=== PATIENT | female | born 2000 | race Caucasian/White ===

== ENCOUNTER 2018-06-05 20:41 | Emergency (ER) | payer BC ==
[2018-06-05 20:59] VITALS: BP 114/75
--- NOTE | 2018-06-05 21:27 | UC ---
Ear Complaint HPI - HPI Summary HPI Summary: Pt c/o gradual onset of right ear pain X 2-3 days. - History of Current Complaint Chief Complaint: UCEar Stated Complaint: RT EAR COMPLAINT Time Seen by Provider: 06/05/18 21:14 Hx Obtained From: Patient Hx Last Menstrual Period: 06/02/18 ?: No Onset/Duration: Gradual Onset, Lasting Days, Still Present Severity Initially: Mild Severity Currently: Moderate Pain Intensity: 6 Associated Signs/Symptoms: Positive: Hearing Loss, URI Symptoms - Allergies/Home Medications Allergies/Adverse Reactions: Allergies Allergy/AdvReac Type Severity Reaction Status Date / Time seasonal Allergy Congestion Uncoded 06/05/18 20:55 Home Medications: Home Medications PARoxetine HCL TAB* [Paxil TAB*] 1 tab DAILY 06/05/18 [History Confirmed ] PMH/Surg Hx/FS Hx/Imm Hx Previously Healthy: Yes - Surgical History Surgical History: Yes Surgery Procedure, Year, and Place: Pancreas Drained, 2008, [place]. Endoscopy Aug 2017 - Family History Known Family History: Positive: Cardiac Disease - Social History Occupation: Student Lives: With Family Alcohol Use: None Substance Use Type: None Smoking Status (MU): Never Smoked Tobacco Have You Smoked in the Last Year: No - Immunization History Vaccination Up to Date: Yes Review of Systems All Other Systems Reviewed And Are Negative: Yes Constitutional: Positive: Negative Skin: Positive: Negative Eyes: Positive: Negative ENT: Positive: Ear Ache Respiratory: Positive: Negative Cardiovascular: Positive: Negative Gastrointestinal: Positive: Negative Genitourinary: Positive: Negative Motor: Positive: Negative Neurovascular: Positive: Negative Musculoskeletal: Positive: Negative Neurological: Positive: Negative Psychological: Positive: Negative Is Patient Immunocompromised?: No Physical Exam Triage Information Reviewed: Yes Appearance: Well-Appearing Vital Signs: Initial Vital Signs Temp 97.9 F 06/05/18 20:56 Pulse 89 06/05/18 20:56 Resp 18 06/05/18 20:56 BP 114/75 06/05/18 20:56 Pulse Ox 99 06/05/18 20:56 Vital Signs Reviewed: Yes Eye Exam: Normal ENT: Positive: Other - right ear canal cerumen. Dental Exam: Normal Neck exam: Normal Respiratory Exam: Normal Cardiovascular Exam: Normal Musculoskeletal Exam: Normal Neurological Exam: Normal Psychological Exam: Normal Skin Exam: Normal Ear Complaint Course/Dx - Differential Dx/Diagnosis Differential Diagnosis/HQI/PQRI: Cerumen Impaction, Otitis Externa, Otitis Media , URI Provider Diagnosis: Impacted cerumen, right ear Discharge - Sign-Out/Discharge Documenting (check all that apply): Patient Departure All imaging exams completed and their final reports reviewed: No Studies - Discharge Plan Condition: Stable Disposition: HOME Patient Education Materials: Cerumen Impaction (ED), Earache (ED) Referrals: Regina Waldrop PA [Primary Care Provider] - If Needed - Billing Disposition and Condition Condition: STABLE Disposition: Home
== END 2018-06-05 21:33 | disposition home or self-care (01) ==
LOC: UCCORT 20:41
DX: H61.21 Impacted cerumen, right ear (principal)
CPT/HCPCS: 99212; G0463

== ENCOUNTER 2020-06-08 17:23 | Inpatient (IN) ==
[2020-06-08 18:22] LABS: ABS Eosinophils 0.1 10^3/ul (0-0.6); ABS Lymphocytes 2.6 10^3/ul (1.0-4.8); ABS Monocytes 0.5 10^3/ul (0-0.8); ABS Neutrophils 4.8 10^3/ul (1.5-7.7); Eosinophil % 0.6 %; Hematocrit 39 % (35-47); Hemoglobin 13.3 g/dL (12.0-16.0); Lymphocyte % 32.7 %; Mean Corpuscular HGB Conc 34 g/dL (31-36); Mean Corpuscular Hemoglobin 27 pg (27-31); Mean Corpuscular Volume 79 fL (80-97); Mean Platelet Volume 8.6 fL (7.4-10.4); Platelet Count 316 10^3/uL (150-450); Red Cell Distribution Width 14 % (10-15); White Blood Count 8.1 10^3/uL (3.5-10.8)
[2020-06-08 18:38] LABS: ALT 10 U/L (7-52); AST 15 U/L (13-39); Albumin 4.4 g/dL (3.2-5.2); Albumin/Globulin Ratio 1.3 (1-3); Alkaline Phosphatase 72 U/L (34-104); Anion Gap 9 mmol/L (2-11); BUN/Creatinine Ratio 19.1 (8-20); Blood Urea Nitrogen 13 mg/dL (6-24); CO2 Carbon Dioxide 20 mmol/L (22-32); Calcium 9.5 mg/dL (8.6-10.3); Chloride 109 mmol/L (101-111); EGFR African American 130.9 (>60); EGFR Non-African American 108.2 (>60); Globulin 3.3 g/dL (2-4); Glucose 87 mg/dL (70-100); Potassium 3.5 mmol/L (3.5-5.0); Sodium 138 mmol/L (135-145); Total Protein 7.7 g/dL (6.4-8.9)
[2020-06-08 18:52] LABS: Acetaminophen < 15 mcg/mL; Alcohol, S < 10 mg/dL (<10); Salicylate < 2.50 mg/dL (<30)
[2020-06-08 19:03] LABS: TSH Ultra Thyroid Stim Horm 1.57 mcIU/mL (0.34-5.60)
[2020-06-08 20:35] LABS: Urine Appearance Cloudy; Urine Bilirubin Negative (Negative); Urine Blood 3+ (Negative); Urine Color Yellow; Urine Glucose Negative (Negative); Urine Ketones 1+ (Negative); Urine Nitrite Negative (Negative); Urine Protein 1+(30 mg/dL) (Negative); Urine Specific Gravity 1.027 (1.010-1.030); Urine Urobilinogen Negative (Negative)
[2020-06-08 20:38] LABS: Urine Bacteria 1+ (Absent); Urine Red Blood Cell 3+(>10/hpf) (Absent); Urine Squamous Epithelial Cell Present (Absent); Urine White Blood Cell Trace(0-5/hpf) (Absent)
[2020-06-08 20:47] LABS: Urine Benzodiazepine Screen None Detected (None Detect); Urine Cannabinoids Screen None Detected (None Detect); Urine Opiates Screen None Detected (None Detect)
[2020-06-09] MEDS ORDERED: Al Hydrox/Mg Hydrox/Simet LIQ 30 ML UDC PO PRN (06:34)
[2020-06-09] MEDS: Vitamin THERAPEUTIC TAB PO SCH (13:14)
[2020-06-09] MEDS ORDERED: CMCS:FluvoxaMINE 50 mg TAB (NF) PO SCH (18:00)
[2020-06-10] MEDS: Vitamin THERAPEUTIC TAB PO SCH (07:59)
[2020-06-10 08:36] LABS: HDL Cholesterol 38.4 mg/dL
[2020-06-10] MEDS ORDERED: Influenza VAC *QUAD* 2020-21* 0.5 ML SYRINGE IM ONE (09:00)
[2020-06-10] MEDS ORDERED: CMCS:FluvoxaMINE 50 mg TAB (NF) PO SCH (18:00)
[2020-06-10] MEDS: CMC: FluvoxaMINE 50 mg TAB (NF) PO SCH (18:31)
[2020-06-10] MEDS: CLOMIPRAMINE 25 MG PO SCH (21:07)
[2020-06-11] MEDS: Vitamin THERAPEUTIC TAB PO SCH (09:02)
[2020-06-11] MEDS: CMC: FluvoxaMINE 50 mg TAB (NF) PO SCH (17:44)
[2020-06-11] MEDS: CLOMIPRAMINE 25 MG PO SCH (21:14)
[2020-06-12] MEDS: Vitamin THERAPEUTIC TAB PO SCH (10:56)
[2020-06-12] MEDS: CMC: FluvoxaMINE 50 mg TAB (NF) PO SCH (18:26)
[2020-06-12] MEDS: CLOMIPRAMINE 25 MG PO SCH (20:56)
[2020-06-13] MEDS: Vitamin THERAPEUTIC TAB PO SCH (09:26)
[2020-06-13] MEDS: CMCS: FluvoxaMINE 50 mg TAB (NF) PO SCH (19:12)
[2020-06-13] MEDS: CMCS: ClomiPRAMINE 25 mg TAB (NF) PO SCH (21:50)
[2020-06-14] MEDS: Vitamin THERAPEUTIC TAB PO SCH (09:24)
[2020-06-14 12:28] LABS: Urine Appearance Turbid; Urine Bilirubin Negative (Negative); Urine Blood Negative (Negative); Urine Color Yellow; Urine Glucose Negative (Negative); Urine Ketones Negative (Negative); Urine Nitrite Negative (Negative); Urine Protein Negative (Negative); Urine Urobilinogen Negative (Negative)
[2020-06-14] MEDS: CMCS: FluvoxaMINE 50 mg TAB (NF) PO SCH (17:42)
[2020-06-14] MEDS: CMCS: ClomiPRAMINE 25 mg TAB (NF) PO SCH (19:54)
[2020-06-15] MEDS: Vitamin THERAPEUTIC TAB PO SCH (08:35)
[2020-06-15] MEDS: CMCS: FluvoxaMINE 50 mg TAB (NF) PO SCH (17:27)
[2020-06-15] MEDS: CMCS:ClomiPRAMINE 25 mg TAB (NF) PO SCH (19:42)
[2020-06-16] MEDS: Vitamin THERAPEUTIC TAB PO SCH (09:28)
[2020-06-16] MEDS: CMCS:ClomiPRAMINE 25 mg TAB (NF) PO SCH (20:33)
[2020-06-17] MEDS: Vitamin THERAPEUTIC TAB PO SCH (09:14)
[2020-06-17 09:51] VITALS: BP 124/65
== END 2020-06-17 12:35 | disposition home or self-care (01) | DRG 755 ==
LOC: ED 17:23 → BSU 06-09 06:16
PROVIDERS: ADMIT Psychiatry & Neurology Psychiatry; ATTEND Psychiatry & Neurology Psychiatry

== ENCOUNTER 2020-08-19 08:36 | Inpatient (IN) ==
[2020-08-19 09:30] LABS: ABS Eosinophils 0.1 10^3/ul (0-0.6); ABS Lymphocytes 2.1 10^3/ul (1.0-4.8); ABS Monocytes 0.5 10^3/ul (0-0.8); ABS Neutrophils 4.7 10^3/ul (1.5-7.7); Eosinophil % 1.7 %; Hematocrit 40 % (35-47); Hemoglobin 13.6 g/dL (12.0-16.0); Lymphocyte % 27.8 %; Mean Corpuscular HGB Conc 34 g/dL (31-36); Mean Corpuscular Hemoglobin 27 pg (27-31); Mean Corpuscular Volume 80 fL (80-97); Mean Platelet Volume 8.1 fL (7.4-10.4); Nucleated Red Blood Cells % 0.1; Platelet Count 303 10^3/uL (150-450); Red Blood Count 5.02 10^6 /uL (3.70-4.87); Red Cell Distribution Width 15 % (10-15); White Blood Count 7.4 10^3/uL (3.5-10.8)
[2020-08-19 09:38] LABS: Urine Appearance Clear; Urine Bilirubin Negative (Negative); Urine Blood Negative (Negative); Urine Color Yellow; Urine Glucose Negative (Negative); Urine Ketones Negative (Negative); Urine Nitrite Negative (Negative); Urine Protein Negative (Negative); Urine Specific Gravity 1.021 (1.010-1.030); Urine Urobilinogen Negative (Negative)
[2020-08-19 09:45] LABS: ALT 11 U/L (7-52); AST 14 U/L (13-39); Albumin 4.6 g/dL (3.2-5.2); Albumin/Globulin Ratio 1.3 (1-3); Alkaline Phosphatase 79 U/L (34-104); Anion Gap 6 mmol/L (2-11); Blood Urea Nitrogen 10 mg/dL (6-24); CO2 Carbon Dioxide 25 mmol/L (22-32); Calcium 9.3 mg/dL (8.6-10.3); Chloride 106 mmol/L (101-111); Globulin 3.5 g/dL (2-4); Glucose 71 mg/dL (70-100); Potassium 3.7 mmol/L (3.5-5.0); Sodium 137 mmol/L (135-145); Total Protein 8.1 g/dL (6.4-8.9)
[2020-08-19 09:47] LABS: Urine Benzodiazepine Screen None Detected (None Detect); Urine Cannabinoids Screen None Detected (None Detect); Urine Opiates Screen None Detected (None Detect)
[2020-08-19 09:59] LABS: Acetaminophen < 15 mcg/mL; Alcohol, S < 10 mg/dL (<10); Salicylate < 2.50 mg/dL (<30)
[2020-08-19 10:13] LABS: TSH Ultra Thyroid Stim Horm 1.74 mcIU/mL (0.34-5.60)
[2020-08-19] MEDS ORDERED: Al Hydrox/Mg Hydrox/Simet LIQ 30 ML UDC PO PRN (12:12)
[2020-08-19 12:48] LABS: HCG Pregnancy < 0.60 mIU/mL
[2020-08-19] MEDS: Vitamin THERAPEUTIC TAB PO SCH (14:31)
[2020-08-19] MEDS ORDERED: CMCS: ClomiPRAMINE 25 mg TAB (NF) PO SCH (21:00)
[2020-08-20] MEDS: Vitamin THERAPEUTIC TAB PO SCH (10:37)
[2020-08-20] MEDS: CMCS: ClomiPRAMINE 25 mg TAB (NF) PO SCH (20:25)
[2020-08-21] MEDS: Vitamin THERAPEUTIC TAB PO SCH (08:54)
[2020-08-21] MEDS: CMCS: ClomiPRAMINE 25 mg TAB (NF) PO SCH (20:26)
[2020-08-22] MEDS: Vitamin THERAPEUTIC TAB PO SCH (10:06)
[2020-08-22] MEDS: CMCS: ClomiPRAMINE 25 mg TAB (NF) PO SCH (20:50)
[2020-08-23] MEDS: Vitamin THERAPEUTIC TAB PO SCH (09:54)
[2020-08-23] MEDS: CMCS: ClomiPRAMINE 25 mg TAB (NF) PO SCH (20:30)
[2020-08-24] MEDS: Vitamin THERAPEUTIC TAB PO SCH (11:04)
[2020-08-24] MEDS: CMCS: ClomiPRAMINE 25 mg TAB (NF) PO SCH (20:05)
[2020-08-25] MEDS: Vitamin THERAPEUTIC TAB PO SCH (09:22)
[2020-08-25 09:41] VITALS: BP 128/75
== END 2020-08-25 12:01 | disposition home or self-care (01) | DRG 755 ==
LOC: ED 08:36 → BSU 12:12
PROVIDERS: ADMIT Psychiatry & Neurology Psychiatry; ATTEND Psychiatry & Neurology Psychiatry

== ENCOUNTER 2022-09-19 06:11 | Observation (INO) ==
[~2022-09-19 06:11] MED LIST: Buffered Lidocaine 1% SYRIN 1 ml INTRADERM ONE; Lactated Ringers 1000 ml BAG 1,000 ML IV SCH
[2022-09-19] MEDS ORDERED: Dexamethasone IV 4 MG/ML VIAL 1 ml VIAL ONE (06:47)
[2022-09-19] MEDS ORDERED: Lidocaine 2% PF 5 ML VIAL ONE ×2 (06:47→09:03)
[2022-09-19] MEDS ORDERED: Ondansetron 4 mg VIAL 2 MG/ML 2 ml VIAL ONE (06:47)
[2022-09-19] MEDS ORDERED: Propofol 10 MG/ML 20 ML BTL ONE (06:47)
[2022-09-19] MEDS ORDERED: Midazolam 2 mg/2 ml VIAL 1 mg/ml 2 ml VIAL (2 mg) ONE (06:48)
[2022-09-19] MEDS ORDERED: fentaNYL 100 mcg/2 ml 50 MCG/ML VIAL ONE ×4 (06:48→11:50)
[2022-09-19] MEDS ORDERED: Phenylephrine IV 10 MG/ML 1 ml VIAL ONE (06:48)
[2022-09-19] MEDS ORDERED: Rocuronium 50 mg VIAL 10 mg/ml 5 ml VIAL (50 mg) ONE ×2 (06:52→07:58)
[2022-09-19] MEDS ORDERED: Ondansetron ODT 4 mg TAB 4 MG TAB ONE (07:11)
[2022-09-19] MEDS ORDERED: ceFOXitin 2 GM IVPREMIX 2 GM/50 ML BAG ONE (07:18)
[2022-09-19] MEDS ORDERED: fentaNYL 250 mcg/5 ml 50 MCG/ML 5 ml VIAL (250 MCG) ONE (07:47)
[2022-09-19] MEDS ORDERED: HYDROmorphone 0.5 MG/0.5 ML SYRINGE ONE ×2 (07:48→08:05)
[2022-09-19] MEDS ORDERED: Ondansetron ODT 4 mg TAB 4 MG TAB PO ONE (08:00)
[2022-09-19] MEDS ORDERED: Dexmedetomidine 200 mcg/2 ml 2 ml VIAL (200 mcg) ONE (08:12)
[2022-09-19] MEDS ORDERED: Naloxone 0.4 mg VIAL 0.4 mg/ml 1 ml VIAL IV PRN (08:55)
[2022-09-19] MEDS ORDERED: Bupivacaine 0.25% SDV 30 ML ONE (09:22)
[2022-09-19] MEDS ORDERED: Ondansetron 4 mg VIAL 2 MG/ML 2 ml VIAL IV PRN (09:35)
[2022-09-19] MEDS: fentaNYL 100 mcg/2 ml 50 MCG/ML VIAL IV PRN ×5 (09:56→11:53)
[2022-09-19] MEDS ORDERED: HYDROmorphone 1 MG/1 ML SYRINGE ONE (10:09)
[2022-09-19] MEDS: HYDROmorphone 1 MG/1 ML SYRINGE IV PRN ×2 (10:14→10:27)
[2022-09-19] MEDS ORDERED: oxyCODONE/Acetamin 5/325 mg TAB ONE ×2 (11:18)
[2022-09-19] MEDS: oxyCODONE/Acetamin 5/325 mg TAB PO PRN (11:18)
[2022-09-19] MEDS ORDERED: Metoprolol Tartrate 5 mg VIAL 5 ml VIAL (1 mg/ml) ONE (11:51)
[2022-09-19] MEDS ORDERED: Metoprolol Tartrate 5 mg VIAL 5 ml VIAL (1 mg/ml) IV ONE (11:53)
[2022-09-19] MEDS: Lactated Ringers 1000 ml BAG 1,000 ML IV SCH ×2 (13:43→21:31)
[2022-09-20 06:47] LABS: ABS Lymphocytes 1.4 10^3/ul (1.0-4.8); ABS Neutrophils 10.2 10^3/ul (1.5-7.7); Eosinophil % 0.1 %; Hematocrit 34 % (35-47); Hemoglobin 11.2 g/dL (12.0-16.0); Lymphocyte % 11.4 %; Mean Corpuscular HGB Conc 33 g/dL (31-36); Mean Corpuscular Hemoglobin 26 pg (27-31); Mean Corpuscular Volume 78 fL (80-97); Mean Platelet Volume 8.4 fL (7.4-10.4); Platelet Count 299 10^3/uL (150-450); Red Blood Count 4.35 10^6 /uL (3.70-4.87); Red Cell Distribution Width 15 % (10-15); White Blood Count 12.6 10^3/uL (3.5-10.8)
[2022-09-20] MEDS: oxyCODONE/Acetamin 5/325 mg TAB PO PRN (13:29)
[2022-09-20 17:43] VITALS: BP 131/81
== END 2022-09-20 18:15 | disposition home or self-care (01) ==
LOC: OR 06:11 → SSU 06:11
PROVIDERS: ADMIT Obstetrics & Gynecology; ATTEND Obstetrics & Gynecology

== ENCOUNTER 2023-10-30 20:12 | Inpatient (IN) ==
[2023-10-30 22:11] LABS: ABS Basophils 0.1 10^3/uL (0.0-0.1); ABS Eosinophils 0.1 10^3/uL (0.0-0.5); ABS Lymphocytes 2.8 10^3/uL (1.0-4.8); ABS Monocytes 0.4 10^3/uL (0.0-0.9); ABS Neutrophils 4.9 10^3/uL (1.5-7.6); Eosinophil % 1.7 %; Hemoglobin 12.6 g/dL (11.5-14.3); Lymphocyte % 33.5 %; Mean Corpuscular Hemoglobin 25.3 pg (27-33); Mean Corpuscular Hgb Conc 33.1 g/dL (31-36); Mean Corpuscular Volume 76.4 fL (80-97); Mean Platelet Volume 7.9 fL (7.5-11.2); Platelet Count 335 10^3/uL (150-450); Red Blood Count 4.98 10^6/uL (3.63-4.92); Red Cell Distribution Width 14.8 % (12-17); White Blood Count 8.4 10^3/uL (3.8-11.8)
[2023-10-30 22:42] LABS: ALT 18 U/L (7-52); AST 18 U/L (13-39); Acetaminophen < 15 mcg/mL; Albumin/Globulin Ratio 1.4 (1-3); Alcohol, S < 13 mg/dL (<13); Alkaline Phosphatase 93 U/L (35-149); Anion Gap 7 mmol/L (2-16); Blood Urea Nitrogen 14 mg/dL (6-24); CO2 Carbon Dioxide 23 mmol/L (22-32); Calcium 8.8 mg/dL (8.6-10.3); Chloride 105 mmol/L (101-111); Creatinine, Serum 0.78 mg/dL (0.51-0.95); Globulin 2.9 g/dL (2-4); Glucose 93 mg/dL (70-100); Potassium 3.9 mmol/L (3.5-5.0); Salicylate < 2.50 mg/dL (<30); Sodium 135 mmol/L (135-145); Total Bilirubin 0.3 mg/dL (0.2-1.0); Total Protein 6.9 g/dL (6.4-8.9)
[2023-10-30 22:49] LABS: HCG Pregnancy < 0.60 mIU/mL
[2023-10-30 22:57] LABS: TSH Ultra Thyroid Stim Horm 2.23 mcIU/mL (0.34-5.60)
[2023-10-30 23:46] LABS: Urine Appearance Clear; Urine Bilirubin Negative (Negative); Urine Blood 3+ (Negative); Urine Color Yellow; Urine Glucose Negative (Negative); Urine Ketones Negative (Negative); Urine Nitrite Negative (Negative); Urine Protein Trace (Negative); Urine Specific Gravity 1.027 (1.002-1.030); Urine Urobilinogen Negative (Negative)
[2023-10-31 00:01] LABS: Urine Bacteria Absent /HPF (Absent); Urine Red Blood Cell 2+(6-10/hpf) /HPF (0-Trace); Urine Squamous Epithelial Cell Present /HPF (Absent); Urine White Blood Cell 1+(6-10/hpf) /HPF (0-Trace)
[2023-10-31] MEDS ORDERED: Ondansetron ODT 4 mg TAB 4 MG TAB PO PRN (01:29)
[2023-10-31] MEDS: Vitamin THERAPEUTIC TAB PO SCH (11:00)
[2023-11-01 08:24] LABS: HDL Cholesterol 39.9 mg/dL
[2023-11-01 16:42] LABS: Urine Benzodiazepine Screen None Detected (None Detect); Urine Cannabinoids Screen None Detected (None Detect); Urine Opiates Screen None Detected (None Detect)
[2023-11-02 20:26] LABS: Urine Appearance Clear; Urine Bilirubin Negative (Negative); Urine Blood Negative (Negative); Urine Color Yellow; Urine Glucose Negative (Negative); Urine Ketones Negative (Negative); Urine Nitrite Negative (Negative); Urine Protein Negative (Negative); Urine Specific Gravity 1.024 (1.002-1.030); Urine Urobilinogen Negative (Negative); Urine pH 5.5 (5.0-8.0)
[2023-11-05] MEDS: Polyethylene Glycol 3350 17 GM PACKET PO SCH (09:18)
[2023-11-06 15:30] LABS: HIV 4th Generation Nonreactive (Nonreactive)
[2023-11-06 15:37] LABS: Hepatitis C Antibody Negative (Negative)
[2023-11-06] MEDS: Al Hydrox/Mg Hydrox/Simet LIQ 30 ML UDC PO PRN (21:52)
[2023-11-07 12:50] LABS: Chlamydia trachomatis NAA Negative (Negative); Neisseria gonorrhoeae (GC) NAA Negative (Negative)
[2023-11-07 14:17] LABS: RPR Nonreactive (Nonreactive)
[2023-11-08 09:39] VITALS: BP 123/67
[2023-11-11 15:30] LABS: T.Pallidum TP-PA Negative (Negative)
== END 2023-11-08 15:00 | disposition home or self-care (01) | DRG 751 ==
LOC: ED 20:12 → EDHOLD 10-31 01:00 → BSU 10-31 01:44
PROVIDERS: ADMIT Psychiatry & Neurology Psychiatry; ATTEND Psychiatry & Neurology Psychiatry